=== PATIENT | male | born 1975 ===

== ENCOUNTER 2018-04-17 14:51 | Emergency (ER) | payer SELFPAY ==
[2018-04-17 14:56] VITALS: O2SAT 97
--- NOTE | 2018-04-17 15:36 | ED PDOC ---
HPI: Allergic Reaction Time Seen by Provider: 04/17/18 15:11 Chief Complaint (Nursing): Allergic Reaction History Per: Patient History/Exam Limitations: no limitations Onset/Duration Of Symptoms: Hrs Associated Symptoms: Skin Rash, Itching. denies: Dyspnea Additional Complaint(s): Pt is a 42 y/o male with hx of HTN and HLD presents to ED for evaluation of a suspected allergic reaction. States that 2 hours ago, he drank a new protein shake and shortly after began experiencing a diffuse rash over trunk and arms, facial swelling, watery eyes, nasal congestion, and throat itchiness. He denies any dyspnea, difficulty swallowing, cough, lightheadedness, cp, or wheezing. He has not taken any medication. PMD: None PMHX: HTN, HLD SurgHx: Denies Medications: none NKDA, also denies any food, environmental or pet allergies Social: Smokes occasionally, denies heavy alcohol usage, or illicit drug use Past Medical History Reviewed: Historical Data, Nursing Documentation, Vital Signs Vital Signs: Last Vital Signs Temp 97.6 F 04/17/18 14:53 Pulse 85 04/17/18 14:53 Resp 18 04/17/18 14:53 BP 135/96 H 04/17/18 15:32 Pulse Ox 97 04/17/18 14:53 - Medical History PMH: Benign Prostatic Hyperplasia, HTN - Surgical History Surgical History: No Surg Hx - Family History Family History: States: Unknown Family Hx - Immunization History Hx Tetanus Toxoid Vaccination: No Hx Influenza Vaccination: No Hx Pneumococcal Vaccination: No - Home Medications Home Medications: Ambulatory Orders Medication Instructions Recorded Sulfamethoxazole/Trimethoprim 1 tab PO BID #20 tab 02/21/16 [Bactrim DS 800 mg-160 mg] DiphenhydrAMINE [Benadryl] 50 mg PO DAILY 4 Days #4 cap 04/17/18 Famotidine [Pepcid] 20 mg PO DAILY 4 Days #4 tab 04/17/18 predniSONE [predniSONE Tab] 50 mg PO DAILY 4 Days #4 tab 04/17/18 - Allergies Allergies/Adverse Reactions: Allergies Allergy/AdvReac Type Severity Reaction Status Date / Time ampicillin Allergy RASH Verified 04/17/18 14:53 Penicillins Allergy RASH Verified 04/17/18 14:53 Review of Systems Eyes: Negative for: Pain Cardiovascular: Negative for: Chest Pain Respiratory: Negative for: Cough Gastrointestinal: Negative for: Nausea, Vomiting, Abdominal Pain Physical Exam - Physical Exam Appears: Positive for: No Acute Distress Head Exam: Positive for: ATRAUMATIC Skin: Positive for: Warm, Rash (scattered erythematous rash wheel flare). Negative for: Diaphoresis Eye Exam: Positive for: EOMI, PERRL, Periorbital swelling (eyelid swelling, no tenderness), Conjunctival injection ENT: Positive for: Normal ENT Inspection, Other (no inflammation of tongue). Negative for: Tonsillar Swelling Cardiovascular/Chest: Positive for: Regular Rate, Rhythm. Negative for: Murmur Respiratory: Positive for: Normal Breath Sounds. Negative for: Accessory Muscle Use, Crackles, Stridor, Wheezing Pulses-Radial (L): 2+ Pulses-Radial (R): 2+ Gastrointestinal/Abdominal: Positive for: Normal Exam, Bowel Sounds, Soft. Negative for: Tenderness Extremity: Negative for: Pedal Edema Neurological/Psych: Positive for: Awake, Alert - ECG O2 Sat by Pulse Oximetry: 97 - Progress ED Course And Treament: Pt is a 42 y/o male with hx of HTN and HLD presents to ED for evaluation of a suspected allergic reaction. On exam has eyelid swelling, diffuse erythematous rash, appears flushed. No signs of respiratory distress or airway compromise. Hemodynamically stable Pepcid 20 Prednisone 50 Benadryl 50 Pt reassessed at 1300, states he feels much better. Will discharge on 5 day course of steroids and antihistamine Condition: Re-examined, Improved Disposition - Clinical Impression Clinical Impression: Allergic reaction, Acute allergic reaction, Angioedema - Patient ED Disposition Is Patient to be Admitted: No Counseled Patient/Family Regarding: Need For Followup, Rx Given - Disposition [facility] [place] [facility]] Disposition: Routine/Home Disposition Time: 17:08 Condition: IMPROVED Additional Instructions: Continue taking medication as prescribed, return if symptoms worsen. Take caution that Benadryl can cause drowsiness so do not operate heavy machinery or drive. F/U WITH PMD, referral to [facility] given Prescriptions: DiphenhydrAMINE [Benadryl] 50 mg PO DAILY 4 Days #4 cap Famotidine [Pepcid] 20 mg PO DAILY 4 Days #4 tab predniSONE [predniSONE Tab] 50 mg PO DAILY 4 Days #4 tab Instructions: Angioedema Forms: Referrizer (Malay) Print Language: AMHARIC
[2018-04-17 18:39] VITALS: BP 138/70; PULSE 78; RESP 17; TEMP 98.4
== END 2018-04-17 17:20 | disposition home or self-care (01) ==
LOC: H.ER 14:51
DX: T78.3XXA Angioneurotic edema, initial encounter (principal); T78.40XA Allergy, unspecified, initial encounter; E78.5 Hyperlipidemia, unspecified; I10 Essential (primary) hypertension; Z88.0 Allergy status to penicillin